=== PATIENT | male | born 1970 | race American Indian/Alaskan Native ===

== ENCOUNTER 2021-04-12 05:24 | Emergency (ER) | payer OTHER ==
[2021-04-12] MEDS ORDERED: SODIUM CHLORIDE 0.9% 1000 ML 1,000 ML IV ONE (07:48)
[2021-04-12] MEDS ORDERED: methylPREDNISolone Sod Succinate 125 MG/2 ML INJ IV ONE (07:48)
[2021-04-12] MEDS ORDERED: IPRATROPIUM/ALBUTEROL SULFATE 3 ML AMPUL.NEB IH ONE (07:48)
[2021-04-12] MEDS ORDERED: ACETAMINOPHEN 500 MG TAB PO ONE (07:49)
--- NOTE | 2021-04-12 07:49 | Emergency Department Report ---
ED Abdominal Pain HPI - General Chief Complaint: Abdominal Pain Stated Complaint: FLU Time Seen by Provider: 04/12/21 07:39 Source: patient Mode of arrival: Ambulatory Limitations: No Limitations - History of Present Illness Initial Comments: 50-year-old male with a past medical history of hypertension presents to the ER today with complaints of abdominal pain and URI symptoms/cough. Patient states that his symptoms started 5 days ago. Patient reports diffuse abdominal pain which has been sharp in nature, constant and radiates into his lower and upper back. He states that he vomited 2 days ago, this occurred only one time and emesis was mainly liquid. He denies any hematemesis. He states that he has been intermittently nauseous since. Patient also reports no bowel movement for 4 days. He states that he did try mag citrate but only small amount of stool was produced. He denies any blood or mucus in the stool. He denies any prior history of abdominal surgeries. He denies recent bad food intake. He denies any recent travel. Also states that he has had runny nose, nasal congestion and a productive cough. He states that the cough has been severe with associated wheezing and he gets short of breath on exertion. He denies any associated chest pain. He denies any apparent fever at home or chills. He denies any ill contacts. He denies any history of tobacco use of any lung or heart disease. He states that he did take a COVID-19 test last week Friday but this was done through sputum and it was negative. MD Complaint: abdominal pain, other (URI symptoms/cough) -: Gradual, days(s) (5 ) Severity scale (0 -10): 7 - Related Data Previous Rx's Medication Instructions Recorded Last Taken Type Cyclobenzaprine [Flexeril] 10 mg PO TID PRN #20 tablet 07/22/13 Unknown Rx Ibuprofen [Motrin] 800 mg PO TID #30 tablet 07/22/13 Unknown Rx Albuterol Mdi (or & Nicu Only) 2 puff IH QID PRN #8.5 gram 04/12/21 Unknown Rx [ProAir HFA Inhaler] Azithromycin [Zithromax Z-DAYO] 250 mg PO DAILY #1 pack 04/12/21 Unknown Rx Benzonatate [Tessalon Perles] 100 mg PO Q8HR PRN #30 capsule 04/12/21 Unknown Rx Ondansetron [Zofran Odt] 4 mg PO Q8HR PRN #12 tab.rapdis 04/12/21 Unknown Rx predniSONE [Deltasone] 50 mg PO QDAY #5 tab 04/12/21 Unknown Rx Allergies Allergy/AdvReac Type Severity Reaction Status Date / Time No Known Allergies Allergy Unverified 07/22/13 11:39 ED Review of Systems ROS: Stated complaint: FLU Other details as noted in HPI Constitutional: denies: chills, fever Eyes: denies: eye pain, eye discharge, vision change ENT: congestion, other (rhinorrhea) Respiratory: cough, shortness of breath, wheezing Cardiovascular: denies: chest pain, palpitations, dyspnea on exertion, edema, syncope, paroxysmal nocturnal dyspnea Gastrointestinal: abdominal pain, nausea, vomiting, constipation Genitourinary: denies: urgency, dysuria Musculoskeletal: back pain Skin: denies: rash, lesions Neurological: denies: headache, weakness, numbness, paresthesias, confusion, abnormal gait, vertigo Psychiatric: denies: anxiety, depression ED Past Medical Hx - Past Medical History Previous Medical History?: Yes Hx Hypertension: Yes Additional medical history: chronic neck and shoulder pain - Surgical History Past Surgical History?: No - Social History Smoking Status: Never Smoker - Medications Home Medications: Home Medications Medication Instructions Recorded Confirmed Last Taken Type Cyclobenzaprine [Flexeril] 10 mg PO TID PRN #20 tablet 07/22/13 Unknown Rx Ibuprofen [Motrin] 800 mg PO TID #30 tablet 07/22/13 Unknown Rx Albuterol Mdi (or & Nicu Only) 2 puff IH QID PRN #8.5 gram 04/12/21 Unknown Rx [ProAir HFA Inhaler] Azithromycin [Zithromax Z-DAYO] 250 mg PO DAILY #1 pack 04/12/21 Unknown Rx Benzonatate [Tessalon Perles] 100 mg PO Q8HR PRN #30 capsule 04/12/21 Unknown Rx Ondansetron [Zofran Odt] 4 mg PO Q8HR PRN #12 tab.rapdis 04/12/21 Unknown Rx predniSONE [Deltasone] 50 mg PO QDAY #5 tab 04/12/21 Unknown Rx ED Physical Exam - General Limitations: No Limitations General appearance: alert, in no apparent distress - Head Head exam: Present: atraumatic, normocephalic, normal inspection - Eye Eye exam: Present: normal appearance, PERRL, EOMI Pupils: Present: normal accommodation - Neck Neck exam: Present: normal inspection, full ROM. Absent: meningismus - Respiratory Respiratory exam: Present: wheezes. Absent: respiratory distress - Expanded Respiratory Exam Expanded Location: Wheezes: Right, Left, Upper, Lower - Cardiovascular Cardiovascular Exam: Present: regular rate, normal rhythm, normal heart sounds - GI/Abdominal GI/Abdominal exam: Present: soft. Absent: distended, tenderness, guarding, rebound - Back Exam Back exam: Present: normal inspection, full ROM - Neurological Exam Neurological exam: Present: alert, oriented X3, CN II-XII intact, normal gait - Psychiatric Psychiatric exam: Present: normal affect, normal mood - Skin Skin exam: Present: intact ED Course Vital Signs 04/12/21 04/12/21 04/12/21 07:20 07:29 08:36 Temperature 101.2 F H 101.2 F H Pulse Rate 98 H 100 H Pulse Rate [ Anterior Bilateral Throughout] Respiratory 20 18 16 Rate Respiratory Rate [Anterior Bilateral Throughout] Blood Pressure 155/91 Blood Pressure 151/91 [Right] O2 Sat by Pulse 96 100 Oximetry 04/12/21 04/12/21 09:38 10:14 Temperature 98.6 F Pulse Rate 98 H Pulse Rate [ 93 H Anterior Bilateral Throughout] Respiratory 16 Rate Respiratory 18 Rate [Anterior Bilateral Throughout] Blood Pressure Blood Pressure 146/87 [Right] O2 Sat by Pulse 96 Oximetry ED Medical Decision Making - Lab Data Result diagrams: 04/12/21 07:54 04/12/21 07:54 - EKG Data EKG shows normal: sinus rhythm Rate: normal (100) - EKG Data Interpretation: no acute changes - Radiology Data Radiology results: report reviewed Patient: MIKE PAYNE MR#: [id number] : 1970 Acct:[id number] Age/Sex: 50 / M ADM Date: 04/12/21 Loc: ED Attending Dr: Ordering Physician: MUMTAZ AVENDANO Date of Service: 04/12/21 Procedure(s): XR chest routine 2V Accession Number(s): [id number] cc: MUMTAZ AVENDANO Fluoro Time In Minutes: CHEST 2 VIEWS INDICATION: Cough. COMPARISON: None FINDINGS: SUPPORT DEVICES: None. HEART: Within normal limits. LUNGS/PLEURA: Minimal patchy medial right basilar airspace disease with otherwise clear lungs. No pneumothorax. ADDITIONAL FINDINGS: None. IMPRESSION: 1. Pulmonary findings as above. Signer Name: Hernán Yap MD Signed: 04/12/2021 8:25 AM Workstation Name: [id number] Transcribed By: ELI Dictated By: Hernán Yap MD Electronically Authenticated By: Hernán Yap MD Signed Date/Time: 04/12/21824 DD/ 3 TD/TT: - Medical Decision Making 1050: Patient currently resting comfortably. He reports feeling better. Repeat chest exam shows improvement of his wheezing after the nebulizer treatment. Repeat abdominal exam shows that he has a soft nontender abdomen. Patient currently d oes not appear toxic or ill. He is not currently in any pain or respiratory distress. He has not had any vomiting during stay. Repeat vital signs shows improvement after meds and IV fluids. Patient was ambulated in the ER and maintaining oxygen saturation of 95% /96% on RA without any complaints of shortness of breath. Labs reviewed --CBC, CMP unremarkable; troponin negative; lactic acid was n ormal. EKG showed no acute ischemic changes, STEMI or significant dysrhythmias. His urinalysis was normal. Chest x-ray showed - Minimal patchy medial right basilar airspace disease with otherwise clear lungs. Discussed results with patient. There is no evidence of an infectious process such as meningitis, severe pneumonia, ARDS, retropharyngeal abscess, acute appendicitis, bowel obstruction, acute cholecystitis, bowel perforation, major GI bleed, severe diverticulitis, abdominal aortic aneurysm, mesenteric ischemia, volvulus, sepsis sepsis or other serious bacterial infection requiring further testing, treatment, consultation or admission at this time Symptoms could be related to a viral syndrome at this time, but he will be started on antibiotics, prednisone and an albuterol inhaler. Also recommend that he gets an outpatient nasal PCR COVID-19 test. Recommend lots of rest and fluids. Patient expressed understanding of instructions and agree with plan but he also understands that if his symptoms worsens in any way needs to return immediately to the ER. T Critical care attestation.: If time is entered above; I have spent that time in minutes in the direct care of this critically ill patient, excluding procedure time. ED Disposition Clinical Impression: Acute bronchitis, Viral syndrome, Abdominal pain Disposition: - TO HOME OR SELFCARE Is pt being admited?: No Does the pt Need Aspirin: No Condition: Stable Instructions: Acute Bronchitis, Adult, [id number], Abdominal Pain, Adult, [id number], Viral Illness, Adult, Acute Bronchitis (ED) Additional Instructions: Recommend that you take the Z-Dayo, the prednisone and an albuterol inhaler as prescribed. Take the Tessalon perles as needed to help with cough. Take the ibuprofen as needed to help with pain. And take the Zofran as needed to help with nausea. Recommend that you do lots of fluids and rest over the next couple days. Recommend close follow-up with your primary care doctor but if your symptoms worsens in any way return immediately to the ER. Prescriptions: predniSONE [Deltasone] 50 mg PO QDAY #5 tab Albuterol Mdi (or & Nicu Only) [ProAir HFA Inhaler] 2 puff IH QID PRN #8.5 gram PRN Reason: Shortness Of Breath Benzonatate [Tessalon Perles] 100 mg PO Q8HR PRN #30 capsule PRN Reason: Cough Azithromycin [Zithromax Z-DAYO] 250 mg PO DAILY #1 pack Ondansetron [Zofran Odt] 4 mg PO Q8HR PRN #12 tab.rapdis PRN Reason: Vomitingh Referrals: ELVIA GUERRERO MD [Staff Physician] - 3-5 Days Forms: Work/School Release Form(ED) Time of Disposition: 11:00
[2021-04-12] MEDS ORDERED: ACETAMINOPHEN 500 MG TAB PO SCH (08:00)
[2021-04-12 08:23] LABS: Basophils % (Auto) 0.7 % (0.0-1.8); Eosinophils % (Auto) 0.1 % (0.0-4.3); Hematocrit 41.9 % (35.5-45.6); Hemoglobin 14.4 gm/dl (11.8-15.2); Lymphocytes # (Auto) 1.4 K/mm3 (1.2-5.4); Lymphocytes % (Auto) 27.5 % (13.4-35.0); Mean Corpuscular HGB Conc 34 % (32-34); Mean Corpuscular Volume 95 fl (84-94); Monocytes # (Auto) 0.3 K/mm3 (0.0-0.8); Monocytes % (Auto) 6.8 % (0.0-7.3); Red Cell Distribution Width 13.7 % (13.2-15.2)
--- NOTE | 2021-04-12 08:29 | XRay Report ---
CHEST 2 VIEWS INDICATION: Cough. COMPARISON: None FINDINGS: SUPPORT DEVICES: None. HEART: Within normal limits. LUNGS/PLEURA: Minimal patchy medial right basilar airspace disease with otherwise clear lungs. No pn eumothorax. ADDITIONAL FINDINGS: None. IMPRESSION: 1. Pulmonary findings as above. Signer Name: Hernán Yap MD Signed: 04/12/2021 8:25 AM Workstation Name: [id number]
[2021-04-12 08:44] LABS: Bilirubin,Urine NEG (Negative); Blood,Urine NEG (Negative); Color,Urine Yellow (Yellow); Mucus,Urine FEW /HPF
[2021-04-12 08:47] LABS: Alanine Aminotransferase 26 units/L (7-56); BUN/Creatinine Ratio 10; Blood Urea Nitrogen 10 mg/dL (9-20); Calcium 8.5 mg/dL (8.4-10.2); Hemolysis Index 14
[2021-04-12 09:57] LABS: Platelet Count 134 K/mm3 (140-440)
[2021-04-12 10:16] VITALS: BP 146/87
--- NOTE | 2021-04-12 14:29 | Electrocardiograph Report ---
[facility] Test Date: 2021-04-12 Test Time: 10:01:01 Pat Name: MIKE PAYNE Department: ED Room: Gender: M [employer]dra[employer]: NURSE : 1970 Requested By: MUMTAZ AVENDANO Order Number: [id number] Reading MD: Macho Berman Measurements Intervals [place] Rate: 100 P: 57 OK: 159 QRS: 6 QRSD: 82 T: 28 QT: 338 QTc: 435 Interpretive Statements Sinus tachycardia Probable anteroseptal infarct, old No previous ECG available for comparison Electronically Signed On 04-12-2021 14:29:04 EDT by Macho Berman
== END 2021-04-12 11:08 | disposition home or self-care (01) ==
LOC: ED 05:24
DX: J20.9 Acute bronchitis, unspecified (principal); B34.9 Viral infection, unspecified; R10.9 Unspecified abdominal pain; I10 Essential (primary) hypertension; Z79.899 Other long term (current) drug therapy
CPT/HCPCS: 36415; 71046; 80053; 81001; 82140; 84484; 85025; 87040; 93005; 94640; 96361; 96374; 99284; J2930; J7030; 94644